=== PATIENT | female | born 1975 | race Caucasian/White ===

== ENCOUNTER 2017-02-13 01:03 | Emergency (ER) | payer OTHER ==
[~2017-02-13] VITALS: Ht 177.8 cm; Wt 70.0 kg
[2017-02-13 01:12] VITALS: BP 118/77; PULSE 69; RESP 18; TEMP 98.9; O2SAT 96
--- NOTE | 2017-02-13 01:33 | PD ---
HPI Chief Complaint: Alcohol/Drug Intoxication Time Seen by Provider: 01:10 Travel History International Travel<30 days: No Contact w/Intl Traveler<30days: No Traveled to known affect area: No History of Present Illness HPI 41-year-old female was brought in by EMS after patient was found intoxicated on the side of the road. Patient admits to alcohol intake today. Patient denies any headache. Patient denies any chest pain or shortness of breath. Patient denies abdominal pain. Patient states that she history of fracture to the hands in the past. PFSH Past Medical History Diminished Hearing: No Immunizations Current: Yes Seizures: Yes Tetanus Vaccination: Unknown ?: Unknown LMP: UNK : 4 Para: 3 Miscarriage: 1 Ovarian Cysts: Yes Past Surgical History Cholecystectomy: Yes Social History Alcohol Use: Yes Tobacco Use: Yes Substance Use: Yes Allergies-Medications (Allergen,Severity, Reaction): Coded Allergies: Robitussin (Verified Allergy, Intermediate, Rash, 02/13/17) Uncoded Allergies: MAYONNAISE (Allergy, Mild, 02/13/17) Reported Meds & Prescriptions Reported Meds & Active Scripts Active Potassium Chloride ER (Potassium Chloride) 10 Meq Tab 10 Meq PO BID Review of Systems General / Constitutional: No: Fever Eyes: No: Visual changes HENT: No: Headaches Cardiovascular: No: Chest Pain or Discomfort Respiratory: No: Shortness of Breath Gastrointestinal: No: Abdominal Pain Genitourinary: No: Dysuria Musculoskeletal: No: Pain Skin: No Rash Neurologic: No: Weakness Psychiatric: No: Depression Endocrine: No: Polydipsia Hematologic/Lymphatic: No: Easy Bruising Physical Exam Narrative GENERAL: Well-nourished, well-developed patient. SKIN: Focused skin assessment warm/dry. HEAD: Normocephalic. EYES: No scleral icterus. No injection or drainage. NECK: Supple, trachea midline. No JVD or lymphadenopathy. CARDIOVASCULAR: Regular rate and rhythm without murmurs, gallops, or rubs. RESPIRATORY: Breath sounds equal bilaterally. No accessory muscle use. GASTROINTESTINAL: Abdomen soft, non-tender, nondistended. MUSCULOSKELETAL: No cyanosis, or edema. BACK: Nontender without obvious deformity. No CVA tenderness. Neurologic exam: Patient is intoxicated however no obvious focal neurological deficit. Data Data Last Documented VS Vital Signs Date Time Temp Pulse Resp B/P Pulse Ox O2 Delivery O2 Flow Rate FiO2 4/20/17 01:12 98.9 69 18 118/77 96 Room Air Orders Complete Blood Count With Diff (02/13/17 01:30) Comprehensive Metabolic Panel (02/13/17 01:30) Iv Access Insert/Monitor (02/13/17 01:30) Alcohol (Ethanol) (02/13/17 01:30) Lorazepam Inj (Ativan Inj) (02/13/17 05:00) Lorazepam Inj (Ativan Inj) (02/13/17 05:00) Restraints Violent (02/13/17 05:00) Labs Laboratory Tests Test 02/13/17 01:30 White Blood Count 4.9 TH/MM3 Red Blood Count 4.37 MIL/MM3 Hemoglobin 14.3 GM/DL Hematocrit 41.8 % Mean Corpuscular Volume 95.7 FL Mean Corpuscular Hemoglobin 32.7 PG Mean Corpuscular Hemoglobin 34.2 % Concent Red Cell Distribution Width 14.1 % Platelet Count 183 TH/MM3 Mean Platelet Volume 8.6 FL Neutrophils (%) (Auto) 25.5 % Lymphocytes (%) (Auto) 61.5 % Monocytes (%) (Auto) 10.1 % Eosinophils (%) (Auto) 1.6 % Basophils (%) (Auto) 1.3 % Neutrophils # (Auto) 1.2 TH/MM3 Lymphocytes # (Auto) 3.0 TH/MM3 Monocytes # (Auto) 0.5 TH/MM3 Eosinophils # (Auto) 0.1 TH/MM3 Basophils # (Auto) 0.1 TH/MM3 CBC Comment DIFF FINAL Differential Comment Sodium Level 143 MEQ/L Potassium Level 3.2 MEQ/L Chloride Level 109 MEQ/L Carbon Dioxide Level 23.9 MEQ/L Anion Gap 10 MEQ/L Blood Urea Nitrogen 6 MG/DL Creatinine 0.63 MG/DL Estimat Glomerular Filtration 104 ML/MIN Rate Random Glucose 77 MG/DL Calcium Level 7.8 MG/DL Total Bilirubin 0.4 MG/DL Aspartate Amino Transf 122 U/L (AST/SGOT) Alanine Aminotransferase 37 U/L (ALT/SGPT) Alkaline Phosphatase 69 U/L Total Protein 6.9 GM/DL Albumin 3.8 GM/DL Ethyl Alcohol Level 293 MG/DL MDM Medical Decision Making Medical Screen Exam Complete: Yes Emergency Medical Condition: Yes Interpretation(s) 2:29 AM. CBC within normal limit. Potassium 3.2. Alcohol 293. Differential Diagnosis Differential diagnosis including alcohol intoxication, dehydration, electrolyte imbalance. Narrative Course 41-year-old female was brought in by EMS for alcohol intoxication. 5 AM. Patient become combative and abusive. Ativan 2 mg IV given. Diagnosis Primary Impression: Alcohol intoxication Qualified Code: F10.120 - Alcohol intoxication, uncomplicated Additional Impressions: Hypokalemia Drug-induced mood disorder Patient Instructions: General Instructions Additional Instructions: Potassium as directed. Advised [facility]. Med/Other Pt SpecificInfo: Prescription(s) given Scripts Potassium Chloride ER 10 Meq Tab10 Meq PO BID #10 TAB Ref 0 Prov:Gregory Ambrosio MD 02/13/17 Disposition: 01 DISCHARGE HOME Condition: Stable Gregory Ambrosio MD Feb 13, 2017 01:33
[2017-02-13 01:46] LABS: AUTOMATED NEUTROPHIL # 1.2 TH/MM3 (1.8-7.7); BASOPHIL # 0.1 TH/MM3 (0-0.2); BASOPHIL % 1.3 % (0.0-2.0); EOSINOPHIL # 0.1 TH/MM3 (0-0.4); EOSINOPHIL % 1.6 % (0.0-4.0); HEMATOCRIT 41.8 % (35.0-46.0); HEMO FLAGS DIFF FINAL; LYMPH % 61.5 % (9.0-44.0); MEAN CELL VOLUME 95.7 FL (80.0-100.0); MEAN CORPUSCULAR HEMOGLOBIN 32.7 PG (27.0-34.0); MEAN CORPUSCULAR HGB CONC 34.2 % (32.0-36.0); MONO % 10.1 % (0.0-8.0); NEUT % 25.5 % (16.0-70.0); PLATELET COUNT 183 TH/MM3 (150-450); RED BLOOD COUNT 4.37 MIL/MM3 (4.00-5.30); RED CELL DISTRIBUTION WIDTH 14.1 % (11.6-17.2); WHITE BLOOD COUNT 4.9 TH/MM3 (4.0-11.0)
[2017-02-13 02:04] LABS: ALT (GPT) 37 U/L (10-53); ANION GAP 10 MEQ/L (5-15); AST (GOT) 122 U/L (15-37); BICARBONATE 23.9 MEQ/L (21.0-32.0); BLOOD UREA NITROGEN 6 MG/DL (7-18); CHLORIDE 109 MEQ/L (98-107); GLOMERULAR FILTRATION RATE 104 ML/MIN (>89); POTASSIUM 3.2 MEQ/L (3.5-5.1); SODIUM (NA) 143 MEQ/L (136-145)
[2017-02-13 02:16] LABS: ALKALINE PHOSPHATASE 69 U/L (45-117); TOTAL BILIRUBIN ADULT 0.4 MG/DL (0.2-1.0)
[2017-02-13] MEDS ORDERED: POTA10TA2 PO (02:30)
[2017-02-13] MEDS ORDERED: LORazepam 2 MG/ML VIAL ONE (05:00)
[2017-02-13] MEDS ORDERED: LORazepam 2 MG/ML VIAL IV PUSH ONE (05:00)
[2017-02-13 09:13] VITALS: BP 134/69
== END 2017-02-13 09:14 | disposition home or self-care (01) ==
LOC: NEPE 01:03
DX: F10.129 Alcohol abuse with intoxication, unspecified (principal); E87.6 Hypokalemia; F19.94 Other psychoactive substance use, unspecified with psychoactive substance-induced mood disorder; Y90.8 Blood alcohol level of 240 mg/100 ml or more; Z72.0 Tobacco use
CPT/HCPCS: 80053; 80307; 85025; 96374; 99285; J2060

== ENCOUNTER 2017-05-10 10:39 | Emergency (ER) | payer OTHER ==
[~2017-05-10] VITALS: Ht 165.1 cm; Wt 65.0 kg
[~2017-05-10 10:39] MED LIST: POTA10TA2 PO
[2017-05-10 11:03] VITALS: BP 119/76; PULSE 83; RESP 16; TEMP 97.6; O2SAT 96
[2017-05-10 11:09] VITALS: O2SAT 95
[2017-05-10] MEDS ORDERED: SODIUM CHLORIDE 0.9% FLUSH 10 ML FLUSH IVF PRN (11:15)
[2017-05-10] MEDS ORDERED: SODIUM CHLOR 0.9% 1000 ML INJ 1,000 ML IV ONE (11:15)
--- NOTE | 2017-05-10 11:26 | PD ---
HPI Chief Complaint: Alcohol/Drug Intoxication Time Seen by Provider: 11:21 Travel History International Travel<30 days: No Contact w/Intl Traveler<30days: No Traveled to known affect area: No History of Present Illness HPI Patient is a 41-year-old female presenting [place] the emergency department [place] complaining of chest pain. Patient states the chest pain started last night so she drank vodka to alleviate the pain. When she woke up this morning she continued to have the pain and called 911. Patient states it hurts to take a deep breath and the pain radiates to her back. She denies any injury or trauma that would've caused the pain last night. She admits to drinking alcohol she is uncertain if she did any drugs. She states the pain is 8 out of 10 and states it's sore and aching. PFSH Past Medical History Medical History: Denies Significant Hx Diminished Hearing: No Immunizations Current: Yes Seizures: Yes Tetanus Vaccination: Unknown ?: Unknown LMP: 05/09/17 : 4 Para: 3 Miscarriage: 1 Ovarian Cysts: Yes Past Surgical History Cholecystectomy: Yes Social History Alcohol Use: Yes (DAILY) Tobacco Use: Yes (1/2 PPD) Substance Use: Yes (COCAINE OCC) Allergies-Medications (Allergen,Severity, Reaction): Coded Allergies: Robitussin (Verified Allergy, Intermediate, Rash, 02/13/17) Uncoded Allergies: MAYONNAISE (Allergy, Mild, 02/13/17) Reported Meds & Prescriptions Reported Meds & Active Scripts Active Review of Systems ROS Limitations: Intoxication Except as stated in HPI: all other systems reviewed are Neg Eyes: No: Visual changes HENT: No: Headaches, Lightheadedness Cardiovascular: Positive: Chest Pain or Discomfort Gastrointestinal: No: Nausea, Abdominal Pain Musculoskeletal: No: Myalgias Neurologic: No: Weakness Psychiatric: Positive: Substance Abuse Physical Exam Narrative GENERAL: Well-developed, disheveled, well-nourished, acutely intoxicated- appearing female SKIN: Warm and dry. HEAD: Atraumatic. Normocephalic. EYES: Pupils equal and round. No scleral icterus. No injection or drainage. ENT: No nasal bleeding or discharge. Mucous membranes pink and moist. NECK: Trachea midline. No JVD. CARDIOVASCULAR: Regular rate and rhythm. RESPIRATORY: No accessory muscle use. Clear to auscultation. Breath sounds equal bilaterally. GASTROINTESTINAL: Abdomen soft, non-tender, nondistended. Hepatic and splenic margins not palpable. MUSCULOSKELETAL: Extremities without clubbing, cyanosis, or edema. No obvious deformities. Tenderness to palpation on anterior chest wall. NEUROLOGICAL: Awake and alert. No obvious cranial nerve deficits. Motor grossly within normal limits. Five out of 5 muscle strength in the arms and legs. Normal speech. PSYCHIATRIC: Appropriate mood and affect; insight and judgment normal. Data Data Last Documented VS Vital Signs Date Time Temp Pulse Resp B/P Pulse Ox O2 Delivery O2 Flow Rate FiO2 05/10/17 15:15 70 15 113/60 95 Room Air 05/10/17 11:03 97.6 Orders Electrocardiogram (05/10/17 11:05) Ckmb (Isoenzyme) Profile (05/10/17 11:05) Complete Blood Count With Diff (05/10/17 11:05) Comprehensive Metabolic Panel (05/10/17 11:05) Magnesium (Mg) (05/10/17 11:05) Prothrombin Time / Inr (Pt) (05/10/17 11:05) Act Partial Throm Time (Ptt) (05/10/17 11:05) Troponin I (05/10/17 11:05) Lipase (05/10/17 11:05) Chest, Single Ap (05/10/17 11:05) Ecg Monitoring (05/10/17 11:05) Bilateral Bp Monitoring (05/10/17 11:05) Iv Access Insert/Monitor (05/10/17 11:05) Oximetry (05/10/17 11:05) Oxygen Administration (05/10/17 11:05) Sodium Chloride 0.9% Flush (Ns Flush) (05/10/17 11:15) Sodium Chlor 0.9% 1000 Ml Inj (Ns 1000 M (05/10/17 11:15) Alcohol (Ethanol) (05/10/17 11:05) Ed Urine Pregnancytest Poc (05/10/17 11:05) CKMB (05/10/17 11:17) CKMB% (05/10/17 11:17) Diet Regular Basic (05/10/17 Lunch) Labs Laboratory Tests Test 05/10/17 11:17 White Blood Count 8.8 TH/MM3 Red Blood Count 4.21 MIL/MM3 Hemoglobin 13.8 GM/DL Hematocrit 40.3 % Mean Corpuscular Volume 95.8 FL Mean Corpuscular Hemoglobin 32.7 PG Mean Corpuscular Hemoglobin 34.1 % Concent Red Cell Distribution Width 15.7 % Platelet Count 194 TH/MM3 Mean Platelet Volume 8.1 FL Neutrophils (%) (Auto) 68.9 % Lymphocytes (%) (Auto) 23.7 % Monocytes (%) (Auto) 5.8 % Eosinophils (%) (Auto) 1.2 % Basophils (%) (Auto) 0.4 % Neutrophils # (Auto) 6.1 TH/MM3 Lymphocytes # (Auto) 2.1 TH/MM3 Monocytes # (Auto) 0.5 TH/MM3 Eosinophils # (Auto) 0.1 TH/MM3 Basophils # (Auto) 0.0 TH/MM3 CBC Comment DIFF FINAL Differential Comment Prothrombin Time 10.3 SEC Prothromb Time International 0.9 RATIO Ratio Activated Partial 26.1 SEC Thromboplast Time Sodium Level 146 MEQ/L Potassium Level 3.6 MEQ/L Chloride Level 110 MEQ/L Carbon Dioxide Level 23.8 MEQ/L Anion Gap 12 MEQ/L Blood Urea Nitrogen 11 MG/DL Creatinine 0.67 MG/DL Estimat Glomerular Filtration 97 ML/MIN Rate Random Glucose 74 MG/DL Calcium Level 7.9 MG/DL Magnesium Level 2.3 MG/DL Total Bilirubin 0.3 MG/DL Aspartate Amino Transf 27 U/L (AST/SGOT) Alanine Aminotransferase 23 U/L (ALT/SGPT) Alkaline Phosphatase 67 U/L Total Creatine Kinase 259 U/L Creatine Kinase MB 2.6 NG/ML Creatine Kinase MB % 1.0 % Troponin I LESS THAN 0.02 NG/ML Total Protein 7.1 GM/DL Albumin 3.5 GM/DL Lipase 121 U/L Ethyl Alcohol Level 292 MG/DL MDM Medical Decision Making Medical Screen Exam Complete: Yes Emergency Medical Condition: Yes Interpretation(s) Last Impressions Chest X-Ray 05/10/17 1105 Signed Impressions: Service Date/Time: Wednesday, May 10, 2017 11:43 - CONCLUSION: No acute disease. Shukri Slade MD Laboratory Tests Test 05/10/17 11:17 White Blood Count 8.8 TH/MM3 Red Blood Count 4.21 MIL/MM3 Hemoglobin 13.8 GM/DL Hematocrit 40.3 % Mean Corpuscular Volume 95.8 FL Mean Corpuscular Hemoglobin 32.7 PG Mean Corpuscular Hemoglobin 34.1 % Concent Red Cell Distribution Width 15.7 % Platelet Count 194 TH/MM3 Mean Platelet Volume 8.1 FL Neutrophils (%) (Auto) 68.9 % Lymphocytes (%) (Auto) 23.7 % Monocytes (%) (Auto) 5.8 % Eosinophils (%) (Auto) 1.2 % Basophils (%) (Auto) 0.4 % Neutrophils # (Auto) 6.1 TH/MM3 Lymphocytes # (Auto) 2.1 TH/MM3 Monocytes # (Auto) 0.5 TH/MM3 Eosinophils # (Auto) 0.1 TH/MM3 Basophils # (Auto) 0.0 TH/MM3 CBC Comment DIFF FINAL Differential Comment Prothrombin Time 10.3 SEC Prothromb Time International 0.9 RATIO Ratio Activated Partial 26.1 SEC Thromboplast Time Sodium Level 146 MEQ/L Potassium Level 3.6 MEQ/L Chloride Level 110 MEQ/L Carbon Dioxide Level 23.8 MEQ/L Anion Gap 12 MEQ/L Blood Urea Nitrogen 11 MG/DL Creatinine 0.67 MG/DL Estimat Glomerular Filtration 97 ML/MIN Rate Random Glucose 74 MG/DL Calcium Level 7.9 MG/DL Magnesium Level 2.3 MG/DL Total Bilirubin 0.3 MG/DL Aspartate Amino Transf 27 U/L (AST/SGOT) Alanine Aminotransferase 23 U/L (ALT/SGPT) Alkaline Phosphatase 67 U/L Total Creatine Kinase 259 U/L Creatine Kinase MB 2.6 NG/ML Creatine Kinase MB % 1.0 % Troponin I LESS THAN 0.02 NG/ML Total Protein 7.1 GM/DL Albumin 3.5 GM/DL Lipase 121 U/L Ethyl Alcohol Level 292 MG/DL Vital Signs Date Time Temp Pulse Resp B/P Pulse Ox O2 Delivery O2 Flow Rate FiO2 05/10/17 11:09 95 Room Air 05/10/17 11:03 97.6 83 16 119/76 96 Differential Diagnosis Chest wall pain versus ACS versus cardiac arrhythmia versus metabolic disturbance versus alcohol intoxication versus other Narrative Course Patient is a 41-year-old female presenting to the emergency department for evaluation of chest pain. Pain started last night, she utilized fraud, to alleviate the pain, when this did not work she called EMS for evaluation in the emergency department. Pain is reproducible on palpation, EKG shows normal sinus rhythm. Labs are reassuring, initial set of cardiac enzymes are negative. Patient's blood alcohol level is 292, pain is less likely from a cardiac etiology. Patient will be allowed to sleep it off. She will be discharged from the emergency department when she is clinically sober and demonstrates safe ambulation. Patient demonstrated safe ambulation, she was alert, oriented and discharged home. Diagnosis Primary Impression: Alcohol intoxication Qualified Code: F10.920 - Alcohol intoxication, uncomplicated Additional Impression: Anterior chest wall pain Referrals: Primary Care Physician [facility] Patient Instructions: Alcohol Intoxication (DC), Chest Wall Pain (GEN), General Instructions Additional Instructions: Avoid excessive intake of alcohol Maintain adequate fluid intake Follow-up with her primary doctor Follow-up at [facility] Return to emergency department for any new or worsening symptoms Med/Other Pt SpecificInfo: No Change to Meds Scripts Unable to Obtain Active Prescriptions or Reported Meds Disposition: 01 DISCHARGE HOME Condition: Stable Jossy Green May 10, 2017 11:26
[2017-05-10 11:37] LABS: AUTOMATED NEUTROPHIL # 6.1 TH/MM3 (1.8-7.7); BASOPHIL % 0.4 % (0.0-2.0); EOSINOPHIL # 0.1 TH/MM3 (0-0.4); EOSINOPHIL % 1.2 % (0.0-4.0); HEMATOCRIT 40.3 % (35.0-46.0); HEMO FLAGS DIFF FINAL; LYMPH % 23.7 % (9.0-44.0); LYMPHOCYTE # 2.1 TH/MM3 (1.0-4.8); MEAN CELL VOLUME 95.8 FL (80.0-100.0); MEAN CORPUSCULAR HEMOGLOBIN 32.7 PG (27.0-34.0); MEAN CORPUSCULAR HGB CONC 34.1 % (32.0-36.0); MONO % 5.8 % (0.0-8.0); NEUT % 68.9 % (16.0-70.0); PLATELET COUNT 194 TH/MM3 (150-450); RED BLOOD COUNT 4.21 MIL/MM3 (4.00-5.30); RED CELL DISTRIBUTION WIDTH 15.7 % (11.6-17.2); WHITE BLOOD COUNT 8.8 TH/MM3 (4.0-11.0)
[2017-05-10 11:46] LABS: APTT (PATIENT) 26.1 SEC (24.3-30.1); INTERNATIONAL NORMALIZED RATIO 0.9 RATIO; PROTHROMBIN TIME - PATIENT 10.3 SEC (9.8-11.6)
[2017-05-10 12:02] LABS: ALT (GPT) 23 U/L (10-53); ANION GAP 12 MEQ/L (5-15); AST (GOT) 27 U/L (15-37); BICARBONATE 23.8 MEQ/L (21.0-32.0); BLOOD UREA NITROGEN 11 MG/DL (7-18); CHLORIDE 110 MEQ/L (98-107); GLOMERULAR FILTRATION RATE 97 ML/MIN (>89); MAGNESIUM 2.3 MG/DL (1.5-2.5); POTASSIUM 3.6 MEQ/L (3.5-5.1); SODIUM (NA) 146 MEQ/L (136-145)
[2017-05-10 12:05] LABS: ALKALINE PHOSPHATASE 67 U/L (45-117); CREATINE KINASE 259 U/L (26-192); TOTAL BILIRUBIN ADULT 0.3 MG/DL (0.2-1.0)
--- NOTE | 2017-05-10 12:09 | RADRPT ---
EXAM DATE/TIME: 05/10/2017 11:43 [facility] COMPARISON: No previous studies available for comparison. INDICATIONS : Mid-Chest pain and shortness of breath. MEDICAL HISTORY : None. SURGICAL HISTORY : None. ENCOUNTER: Initial ACUITY: 3 days PAIN SCORE: 10/10 LOCATION: Bilateral chest FINDINGS: A single view of the chest demonstrates the lungs to be symmetrically aerated without evidence of mas s, infiltrate or effusion. The cardiomediastinal contours are unremarkable. Osseous structures are intact. CONCLUSION: No acute disease. Shukri Slade MD on May 10, 2017 at 12:07 Board Certified Radiologist. This report was verified electronically.
[2017-05-10 12:23] LABS: CKMB 2.6 NG/ML (0.5-3.6)
[2017-05-10 13:45] VITALS: BP 107/67; PULSE 64; RESP 15; O2SAT 95
[2017-05-10 15:15] VITALS: BP 113/60; PULSE 70; RESP 15; O2SAT 95
--- NOTE | 2017-05-11 12:35 | EKG ---
Date Performed: 05/10/2017 Time Performed: 11:08:21 PTAGE: 41 years EKG: Sinus rhythm NORMAL ECG INTERPRETATION BASED ON A DEFAULT AGE OF 40 YEARS NO PREVIOUS TRACING DOCTOR: Kana Baxter Interpretating Date/Time 05/11/2017 12:33:05
== END 2017-05-10 18:23 | disposition home or self-care (01) ==
LOC: NEPD 10:39 → NEDAMB 18:23
DX: F10.120 Alcohol abuse with intoxication, uncomplicated (principal); R07.89 Other chest pain; Y90.8 Blood alcohol level of 240 mg/100 ml or more
CPT/HCPCS: 71010; 80053; 80307; 82550; 82552; 83690; 83735; 84484; 84703; 85025; 85610; 85730; 93005; 96360; 96361; 99285; J7030